=== PATIENT | female | born 1980 | race Two or more races ===

== ENCOUNTER 2025-02-15 19:06 | Inpatient (IN) | payer SELFPAY ==
[~2025-02-15] VITALS: Ht 149.9 cm; Wt 62.5 kg
--- NOTE | 2025-02-15 19:44 | ED.PDOC ---
HPI (NEURO) HPI Comments 44 year old female with a Hx of Seizures and SLE presents to the ED for the c/c of having 4x Seizures w/ associated episodes of Hematemesis, and N/. Pt states that her symptoms started 2x days ago after previously being admitted at another hospital in [place] for the same c/c, pt notes that she has been unable to take her Keppra medication, because she will just "throw it up". Pt denies and Chest pain, ABD pain, or any other associated symptoms, modifiers, recent injuries or sick contacts present at this time. Chief Complaint: Seizure Time Seen by MD: 19:39 Reviewed Notes: Nurses Notes, Medications, Allergies Information Source: Patient Mode of Arrival: Ambulatory Severity: Moderate Dizziness/Weakness Severity: Does not affect activitie Headache Severity: Moderate Timing: Days Duration: Since onset, Days Prehospital treatment: None Seizure Quality: Mulitple Episodes Headache Quality: Throbbing Headache Location: Generalized Weakness Location: Generalized Numbness Location: Generalized Seizure Location: Generalized Onset: At rest Circumstances: Spontaneous Symptoms: None Before: Normal During: Awake After: Normal Mentation History of: None Modifying factors: Nothing Associated Signs and Symptoms: Nausea, Vomiting Past Medical History PAST MEDICAL HISTORY: Seizures Past Medical History (Other): SLE Surgical History: Family History Family History: Reviewed,noncontributory to illness Social History Smoker: Non-Smoker Alcohol: Denies ETOH Use Drugs: Denies Drug Use Lives In: Home All Other Systems: Reviewed and Negative (Comprehensive systems review obtained and negative except for what is stated in the HPI.) Physical Exam General Appearance: No Apparent Distress HEENT: Other (Pupils and face symmetric. Moist mucous membranes.) Neck: Full Range of Motion, Normal Inspection Respiratory: Lungs Clear, No Accessory Muscle Use, No Respiratory Distress, Normal Breath Sounds Cardiovascular: No Edema, No JVD, Regular Rate/Rhythm Breast Exam: Deferred Gastrointestinal: Epigastric, Soft, Tenderness Genitalia: Deferred Pelvic: Deferred Rectal: Deferred Extremities: Normal inspection, Normal range of motion, Non-tender, No pedal edema Neurologic: Alert (Oriented x4), Normal Affect, Normal Mood, Other (Ambulatory) Cerebellar Function: NOT DONE Reflexes: NOT DONE Skin: Dry, Normal Color, Warm Lymphatic: NOT DONE Was a procedure done? Was a procedure done?: No Differential Diagnosis (SZ) Seizure: CVA/TIA, Syncope, Encephalopathy, Epilepsy-Break Through, Epilepsy- Status CVA: Electrolyte Imbalance, Hypoglycemia General Weakness: Other (Gastritis, ulcer disease, anemia, coagulopathy, among others) Headache: N/A X-Ray, Labs, Meds, VS Vital Signs Date Time Temp Pulse Resp B/P (MAP) Pulse Ox O2 Delivery O2 Flow Rate FiO2 02/15/25 22:53 77 17 111/58 02/15/25 22:42 98.4 77 17 111/58 (75) 98 98.4 02/15/25 22:41 77 17 111/58 02/15/25 21:22 75 18 110/72 (85) 99 02/15/25 21:21 75 18 110/72 02/15/25 20:44 79 17 96 Room Air 02/15/25 20:44 98.1 79 17 98/58 (71) 96 98.1 101/58 (72) 02/15/25 19:08 97.8 93 16 117/79 99 97.8 Lab Test 02/15/25 23:11 02/15/25 21:19 02/15/25 19:55 Range/Units Lactic Acid Level 1.3 0.4-2.0 mmol/L Urine Color Colorless Yellow Urine Clarity Ex.turbid Clear Urine pH 6.5 5.0-9.0 Urine Specific [place] 1.030 1.001-1.035 Urine Protein Trace H Negative Urine Ketones Trace Negative Urine Blood Trace H Negative /uL Urine Nitrite Negative Negative Urine Bilirubin Negative Negative Urine Urobilinogen 2 H Negative mg/dL Urine Leukocyte Esterase 3+ Negative /uL Urine RBC 363 0 - 4 /hpf Urine Microscopic WBC 203 H 0-5 /HPF Urine Squamous Epithelial Cells Mod <5 /hpf Urine Bacteria None seen None Seen /hpf Urine Glucose 4+ H Normal mg/dL Urine Test Negative Negative White Blood Count 11.0 H 4.4-10.8 10^3/uL Red Blood Count 4.14 4.0-5.20 10^6/uL Hemoglobin 9.0 L 12.2-16.2 g/dL Hematocrit 29.9 L 36.0-46.0 % Mean Corpuscular Volume 72.2 L 80.0-100.0 fL Mean Corpuscular Hemoglobin 21.7 L 28.0-32.0 pg Mean Corpuscular Hemoglobin Concent 30.1 L 32.0-36.0 g/dL Red Cell Distribution Width 24.3 H 11.8-14.3 % Platelet Count 167 140-450 10^3/uL Mean Platelet Volume 8.9 6.9-10.8 fL Neutrophils (%) (Auto) 77.3 37.0-80.0 % Lymphocytes (%) (Auto) 16.1 10.0-50.0 % Monocytes (%) (Auto) 5.5 0.0-12.0 % Eosinophils (%) (Auto) 0.6 0.0-7.0 % Basophils (%) (Auto) 0.5 0.0-2.0 % Neutrophils # (Auto) 8.5 1.6-8.6 10 ^3/uL Lymphocytes # (Auto) 1.8 0.4-5.4 10 ^3/uL Monocytes # (Auto) 0.6 0-1.3 10 ^3/uL Eosinophils # (Auto) 0.1 0-0.8 10 ^3/uL Basophils # (Auto) 0.1 0-0.2 10 ^3/uL Nucleated Red Blood Cells 0.1 % Platelet Estimate Adequate Hypochromasia (manual) Moderate Anisocytosis (manual) Moderate Microcytosis Moderate Sodium Level 139 136-145 mmol/L Potassium Level 4.0 3.5-5.1 mmol/L Chloride Level 109 H 98-107 mmol/L Carbon Dioxide Level 19 L 20-31 mmol/L Anion Gap 11 5-15 Blood Urea Nitrogen 8 L 9-23 mg/dL Creatinine 0.81 0.550-1.02 mg/dL Glomerular Filtration Rate Calc 92 >90 mL/min BUN/Creatinine Ratio 9.9 L 10.0-20.0 Serum Glucose 222 H 74-106 mg/dL Calcium Level 8.5 L 8.7-10.4 mg/dL Current Medications Medications (Trade) Dose Ordered Sig/Vargas Route Start Time Stop Time Status Last Admin Ondansetron HCl (Zofran) 4 mg ONCE ONCE IV 02/15/25 19:45 02/15/25 19:46 DC 02/15/25 21:20 Morphine Sulfate 4 mg ONCE ONCE IV 02/15/25 19:45 02/15/25 19:46 DC 02/15/25 21:21 Pantoprazole Sodium (Protonix) 40 mg ONCE ONCE IV 02/15/25 19:45 02/15/25 19:46 DC 02/15/25 21:20 Levetiracetam 100 ml @ 400 mls/hr ONCE ONCE IV 02/15/25 19:45 02/15/25 19:59 DC 02/15/25 20:32 Sodium Chloride 2,000 ml @ 1,000 mls/hr Q2H ONCE IV 02/15/25 19:45 02/15/25 21:44 DC 02/15/25 20:38 Morphine Sulfate 4 mg ONCE ONCE IV 02/15/25 23:00 02/15/25 23:01 DC 02/15/25 22:53 Ceftriaxone Sodium 50 ml @ 100 mls/hr ONCE ONCE IV 02/15/25 23:15 02/15/25 23:44 DC 02/15/25 23:22 PATIENT: NINA LARSON ACCT: [id number] UNIT: [id number] : 1980 LOC: ER ROOM / BED: / AGE / SEX: 44 / F ADM STATUS: REG ER SERVICE 40 ORDERING PHYSICIAN: CARA SWANN MD PROCEDURE(s): ABPL - CT AB PEL WO CON-NO ORAL OR IV REASON: abd pain hematemesis ORDER NUMBER(s): [id number], ACCESSION NUMBER(s): [id number] Exam: CT CT AB PEL WO CON-NO ORAL OR IV History: abd pain hematemesis Comparison Study: None TECHNIQUE: Multidetector CT of the abdomen and pelvis was performed from lung bases to pubic symphysis. Imaging was performed without IV contrast. Axial, coronal, and sagittal multiplanar reformats were obtained from the axial data set by the technologist. RADIATION DOSE: CTDI vol 6.36 mGy. DLP 365.57 mGy.cm Findings: Limited evaluation of the solid organs in the absence of IV contrast. Liver: Unremarkable. Spleen: Unremarkable. Pancreas: Unremarkable. Gallbladder: Unremarkable. Adrenals: Unremarkable Kidneys: Left renal cyst. No hydronephrosis. Pelvic Viscera: Fibroid appearance of the uterus. Vasculature: Unremarkable. Retroperitoneum: Unremarkable. Bowel: No bowel obstruction. No CT evidence of appendicitis. Small hiatal hernia. Possible mild wall thickening of the stomach. Musculoskeletal: Unremarkable. Soft tissues: Unremarkable Lungs: Basilar atelectasis/scarring. Impression: 1. Possible gastric wall thickening, nonspecific. 2. Incidental findings as detailed. X-Ray, Labs, Meds, VS Comment 44-year-old female with a history of seizures and SLE presenting complaining of multiple seizures, nausea, hematemesis, and inability to tolerate p.o. Vitals remarkable for BP 98/58 Exam remarkable for epigastric tenderness to palpation Rhythm strip independently interpreted by me: Sinus rhythm, rate 79, no ectopy. CT abdomen and pelvis Impression: 1. Possible gastric wall thickening, nonspecific. 2. Incidental findings as detailed. CBC remarkable for WBC 11, hemoglobin 9, hematocrit 29.9, metabolic panel unremarkable, UA abnormal consistent with UTI Patient treated with the following in the ED: 2 L 0.9 normal saline IV bolus, morphine 4 mg IV x2, Zofran 4 mg IV, Protonix 40 mg IV, Rocephin 1 g IV On re-evaluation, pain has improved. Vitals were stable. No further emesis in the ED. Plan is to admit the patient for pain and emesis control, GI and Neurology evaluation. Time of 1ST Reevaluation: 20:10 Reevaluation 1ST: Unchanged Patient Education/Counseling: Diagnosis, Treatment, Need For Follow Up Family Education/Counseling: No Family Present Departure 1 Departure Time of Disposition: 23:05 Impression: Primary Impression: Recurrent seizures Additional Impressions: GI bleeding Gastritis UTI (urinary tract infection) Anemia Disposition: ADMITTED INPATIENT Admit to: Tele Condition: Guarded Critical Care Note Critical Care Time?: No Stability Stability form required: No Heart Score Heart Score: Heart Score Response (Comments) Value History N/A 0 EKG N/A 0 Age N/A 0 Risk Factors N/A 0 Troponin N/A 0 Total 0 I personally scribed for CARA SWANN MD ([facility] on 02/15/25 at 19:44. Electronically submitted by Devendra Galindo ([email or web address]). I personally scribed for CARA SWANN MD ([facility]) on 02/15/25 at 22:49. Electronically submitted by Devendra Galindo ([email or web address]). I personally scribed for CARA SWANN MD ([email or web address]) on 02/16/25 at 00:35. Electronically submitted by Devendra Galindo ([email or web address]). CARA SWANN MD Feb 15, 2025 19:44
[2025-02-15 20:18] LABS: Nucleated Red Blood Cells % 0.1 %
[2025-02-15 20:19] LABS: Hematocrit 29.9 % (36.0-46.0); Hemoglobin 9.0 g/dL (12.2-16.2); Mean Corpuscular Hemoglobin 21.7 pg (28.0-32.0); Mean Corpuscular Volume 72.2 fL (80.0-100.0)
[2025-02-15 20:29] LABS: Potassium 4.0 mmol/L (3.5-5.1); Sodium 139 mmol/L (136-145)
[2025-02-15 20:30] LABS: Anion Gap 11 (5-15); Carbon Dioxide 19 mmol/L (20-31); Chloride 109 mmol/L (98-107)
[2025-02-15 20:31] LABS: Calcium 8.5 mg/dL (8.7-10.4)
[2025-02-15] MEDS: levETIRAcetam 1000 mg/100ml 100 ML IV ONE (20:32)
[2025-02-15 20:35] LABS: BUN/Creatinine Ratio 9.9 (10.0-20.0)
[2025-02-15] MEDS: SODIUM CHLORIDE 0.9% 2,000 ML IV ONE (20:38)
[2025-02-15 21:16] LABS: Blood Urea Nitrogen 8 mg/dL (9-23); Glucose 222 mg/dL (74-106)
[2025-02-15] MEDS: ONDANSETRON HCL 4 MG/2 ML VIAL IV ONE (21:20)
[2025-02-15] MEDS: PANTOPRAZOLE 40 MG/10 ML VIAL INJ IV ONE (21:20)
[2025-02-15] MEDS: MORPHINE SULFATE 4 MG/ML SYR/VIAL IV ONE ×2 (21:21→22:53)
[2025-02-15 21:23] LABS: Anisocytosis Moderate
[2025-02-15 22:11] LABS: Urine Protein, UAD TRACE (Negative)
--- NOTE | 2025-02-15 22:47 | DVH ---
Exam: CT CT AB PEL WO CON-NO ORAL OR IV History: abd pain hematemesis Comparison Study: None TECHNIQUE: Multidetector CT of the abdomen and pelvis was performed from lung bases to pubic symphysi s. Imaging was performed without IV contrast. Axial, coronal, and sagittal multiplanar reformats were obtained from the axial data set by the technologist. RADIATION DOSE: CTDI vol 6.36 mGy. DLP 365.57 mGy.cm Findings: Limited evaluation of the solid organs in the absence of IV contrast. Liver: Unremarkable. Spleen: Unremarkable. Pancreas: Unremarkable. Gallbladder: Unremarkable. Adrenals: Unremarkable Kidneys: Left renal cyst. No hydronephrosis. Pelvic Viscera: Fibroid appearance of the uterus. Vasculature: Unremarkable. Retroperitoneum: Unremarkable. Bowel: No bowel obstruction. No CT evidence of appendicitis. Small hiatal hernia. Possible mild wall thickening of the stomach. Musculoskeletal: Unremarkable. Soft tissues: Unremarkable Lungs: Basilar atelectasis/scarring. Impression: 1. Possible gastric wall thickening, nonspecific. 2. Incidental findings as detailed.
[2025-02-15] MEDS: cefTRIAXone 1GM/50ML D5W 50 ML IV ONE (23:22)
[2025-02-16] MEDS ORDERED: DOCUSATE SOD 100 MG CAP PO PRN (01:45)
[2025-02-16] MEDS ORDERED: ONDANSETRON HCL 4 MG/2 ML VIAL IV PRN (01:45)
[2025-02-16] MEDS ORDERED: NITROGLYCERIN 0.4 MG SL TAB SL PRN (01:45)
[2025-02-16] MEDS ORDERED: MORPHINE SULFATE INJ 2 MG/ml SYRG IV PRN (01:45)
--- NOTE | 2025-02-16 01:50 | DVHHP2 ---
History of Present Illness Reason for Visit: Seizure disorder History of Present Illness The patient is a 44-year-old female with past medical history of SLE and seizures presented to [facility] ED for evaluation of seizures activity. Patient reported associated episodes of nausea and hematemesis. Patient reports that her symptoms started 2 days ago after previously being admitted at another hospital in [place] for nausea and vomiting, unable to take her Keppra medication, because she will just "throw it up". Patient was seen and evaluated in the ED, laboratory data shows WBC 11.0, hemoglobin 9.0, hematocrit 29.9, platelets 167, sodium 139, potassium 4.0, BUN 8, creatinine 0.81, glucose 222, hemoglobin A1c pending, calcium 8.5, lactic acid 1.3, blood pressure 123/74, heart rate 80, temperature 98.2 F, O2 saturation 99% on room air. Urinalysis positive for urinary tract infection. Abdomen/pelvis CT revealing possible gastric wall thickening, unspecified. Patient was started on IV antibiotic regimen Rocephin, IV Keppra, please see medication orders section in the computer. On my assessment, patient denied chest pain, no headache, no dizziness, no diaphoresis, no shortness of breath, no abdominal pain, no diarrhea, nausea or vomiting at this moment, no fever, no chills. Patient was admitted for further evaluation and medical management. Past Medical History Seizures, SLE Past Surgical History Family History Reviewed, noncontributory to the management of this case. Past Social History The patient lives at home, denies smoking, alcohol or illicit drugs abuse. Review of Systems Constitutional: Yes: Weakness; No: Fever, Chills, Sweats, Malaise, Other Eyes: No: Pain, Vision change, Conjunctivae inflammation, Eyelid inflammation, Other, Redness ENT: No: Ear pain, Ear discharge, Nose pain, Nose discharge, Nose congestion, Mouth pain, Mouth swelling, Throat pain, Throat swelling, Other Respiratory: No: Cough, Dry, Shortness of breath, SOB with excertion, Wheezing, Hemoptysis, Pleuritic Pain, Sputum, Wheezing, Other Cardiovascular: No: Chest Pain, Palpitations, Orthopnea, Paroxysmal Noc. Dysp marta, Edema, Lt Headedness, Other Gastrointestinal: Nausea, Vomiting (Hematemesis); No: Abdominal Pain, Diarrhea, Constipation, Melena, Hematochezia, Other Genitourinary: No Dysuria, No Frequency, No Incontinence, No Hematuria, No Retention, No Other Musculoskeletal: No: other, neck pain, shoulder pain, arm pain, back pain, hand pain, leg pain, foot pain Skin: No: Rash, Lesions, Jaundice, Bruising, Other Neurological: Seizures; No: Weakness, Numbness, Incoordination, Change in speech, Confusion, Other Allergies: Coded Allergies: Acetaminophen (Verified Allergy, Unknown, 02/15/25) Hydrocodone (Verified Allergy, Unknown, 02/15/25) Ketorolac Tromethamine (Verified Allergy, Unknown, 02/15/25) Exam Vital Signs Vital Signs Date Time Temp Pulse Resp B/P (MAP) Pulse Ox O2 Delivery O2 Flow Rate FiO2 02/16/25 01:23 98.2 80 18 123/74 (90) 99 98.2 02/15/25 20:44 Room Air General Appearance: Alert, Oriented X3, Cooperative, No acute distress HEENT: Atraumatic, PERRLA, EOMI, Mucous membr. moist/pink Respiratory: Clear to auscultation, Normal air movement Cardiovascular: Regular rate, Normal S1, Normal S2, No murmurs Abdominal: Normal bowel sounds, Soft, No tenderness, No hepatospenomegaly, No masses Extremities: No clubbing, No cyanosis, No edema, Normal pulses, No tenderness/ swelling Skin: No rashes, No breakdown, No significant lesion Neuro: Normal speech, Normal tone, Sensation intact, Cranial nerves 3-12 NL, Reflexes 2+, Other (Generalized weakness) Psych/Mental Status: Mental status NL, Mood NL Labs/Xrays Labs Test 02/15/25 23:11 02/15/25 21:19 02/15/25 19:55 Range/Units Lactic Acid Level 1.3 0.4-2.0 mmol/L Urine Color Colorless Yellow Urine Clarity Ex.turbid Clear Urine pH 6.5 5.0-9.0 Urine Specific [place] 1.030 1.001-1.035 Urine Protein Trace H Negative Urine Ketones Trace Negative Urine Blood Trace H Negative /uL Urine Nitrite Negative Negative Urine Bilirubin Negative Negative Urine Urobilinogen 2 H Negative mg/dL Urine Leukocyte Esterase 3+ Negative /uL Urine RBC 363 0 - 4 /hpf Urine Microscopic WBC 203 H 0-5 /HPF Urine Squamous Epithelial Cells Mod <5 /hpf Urine Bacteria None seen None Seen /hpf Urine Glucose 4+ H Normal mg/dL Urine Test Negative Negative White Blood Count 11.0 H 4.4-10.8 10^3/uL Red Blood Count 4.14 4.0-5.20 10^6/uL Hemoglobin 9.0 L 12.2-16.2 g/dL Hematocrit 29.9 L 36.0-46.0 % Mean Corpuscular Volume 72.2 L 80.0-100.0 fL Mean Corpuscular Hemoglobin 21.7 L 28.0-32.0 pg Mean Corpuscular Hemoglobin Concent 30.1 L 32.0-36.0 g/dL Red Cell Distribution Width 24.3 H 11.8-14.3 % Platelet Count 167 140-450 10^3/uL Mean Platelet Volume 8.9 6.9-10.8 fL Neutrophils (%) (Auto) 77.3 37.0-80.0 % Lymphocytes (%) (Auto) 16.1 10.0-50.0 % Monocytes (%) (Auto) 5.5 0.0-12.0 % Eosinophils (%) (Auto) 0.6 0.0-7.0 % Basophils (%) (Auto) 0.5 0.0-2.0 % Neutrophils # (Auto) 8.5 1.6-8.6 10 ^3/uL Lymphocytes # (Auto) 1.8 0.4-5.4 10 ^3/uL Monocytes # (Auto) 0.6 0-1.3 10 ^3/uL Eosinophils # (Auto) 0.1 0-0.8 10 ^3/uL Basophils # (Auto) 0.1 0-0.2 10 ^3/uL Nucleated Red Blood Cells 0.1 % Platelet Estimate Adequate Hypochromasia (manual) Moderate Anisocytosis (manual) Moderate Microcytosis Moderate Sodium Level 139 136-145 mmol/L Potassium Level 4.0 3.5-5.1 mmol/L Chloride Level 109 H 98-107 mmol/L Carbon Dioxide Level 19 L 20-31 mmol/L Anion Gap 11 5-15 Blood Urea Nitrogen 8 L 9-23 mg/dL Creatinine 0.81 0.550-1.02 mg/dL Glomerular Filtration Rate Calc 92 >90 mL/min BUN/Creatinine Ratio 9.9 L 10.0-20.0 Serum Glucose 222 H 74-106 mg/dL Calcium Level 8.5 L 8.7-10.4 mg/dL PATIENT: NINA LARSON ACCT: [id number] UNIT: [id number] : 1980 LOC: ER ROOM / BED: / AGE / SEX: 44 / F ADM STATUS: REG ER SERVICE 40 ORDERING PHYSICIAN: CARA SWANN MD PROCEDURE(s): ABPL - CT AB PEL WO CON-NO ORAL OR IV REASON: abd pain hematemesis ORDER NUMBER(s): [id number], ACCESSION NUMBER(s): [id number] Exam: CT CT AB PEL WO CON-NO ORAL OR IV History: abd pain hematemesis Comparison Study: None TECHNIQUE: Multidetector CT of the abdomen and pelvis was performed from lung bases to pubic symphysis. Imaging was performed without IV contrast. Axial, coronal, and sagittal multiplanar reformats were obtained from the axial data set by the technologist. RADIATION DOSE: CTDI vol 6.36 mGy. DLP 365.57 mGy.cm Findings: Limited evaluation of the solid organs in the absence of IV contrast. Liver: Unremarkable. Spleen: Unremarkable. Pancreas: Unremarkable. Gallbladder: Unremarkable. Adrenals: Unremarkable Kidneys: Left renal cyst. No hydronephrosis. Pelvic Viscera: Fibroid appearance of the uterus. Vasculature: Unremarkable. Retroperitoneum: Unremarkable. Bowel: No bowel obstruction. No CT evidence of appendicitis. Small hiatal hernia. Possible mild wall thickening of the stomach. Musculoskeletal: Unremarkable. Soft tissues: Unremarkable Lungs: Basilar atelectasis/scarring. Impression: 1. Possible gastric wall thickening, nonspecific. 2. Incidental findings as detailed. SEPSIS Sepsis Screen Date sepsis recognized/suspect: Feb 15, 2025 Time Sepsis recognized/suspect: 1909 Recent Procedure: No On Antibiotic Therapy: No Respiratory Rate >20: No Heart Rate >90: Yes Temp<36 C (96.8 F) or >38.3 C: No SBP <90 or MAP <65 mmHG: No New Acute Mental Status Change: No Is the patient on CPAP, BIPAP,: No Physician Orders Ct Ab Pel Wo Con-No Oral Or Iv (02/15/25 19:41) Seizure Precautions (02/15/25 ) Saline Lock (02/15/25 20:24) Blood Culture (02/15/25 23:03) Morphine Sulfate Injection (02/16/25 02:00) Hemoglobin A1c (02/16/25 01:42) Urine Bacterial Culture (02/16/25 01:42) Levetiracetam Ivpb Keppra (02/16/25 10:00) Pantoprazole (Protonix) (02/16/25 10:00) * Neurology Consult (02/16/25 01:42) * Gi Dvh Flatbed Driver (02/16/25 01:42) Ceftriaxone Ivpb Rocephin (02/16/25 09:00) Admit (02/16/25 01:42) Allergies (02/16/25 01:42) Code Status (02/16/25 01:42) 0.9% Ns 1000 Ml (02/16/25 01:45) Oxygen Per Hour (02/16/25 01:42) Ondansetron Hcl (Zofran) (02/16/25 01:45) Docusate Sodium Capsule (Colace Capsule) (02/16/25 01:45) Fall Risk Precautions In Place QSHIFT (02/16/25 01:42) Complete Blood Count (02/17/25 04:00) Comprehensive Metabolic Panel (02/17/25 04:00) Cardiac Diet-2gna,Lofat,Lochol (02/16/25 Breakfast) Condition: Serious (02/16/25 01:42) Maintain Bed Rest (02/16/25 01:42) Morphine Sulfate Injection (02/16/25 01:45) Sequential Compression Device (02/16/25 ) Nitroglycerin Sublingual (Ntrostat Subli (02/16/25 01:45) Morphine Sulfate Injection (02/16/25 01:45) Stat Ekg For Chest Pain (02/16/25 01:42) Notify Md Of Changes From Base (02/16/25 01:42) Media Developer For 24 Hours (02/16/25 01:42) Emergency Dysrhythmia Protocol (02/16/25 01:42) Rhythm Strips Once Every Shift (02/16/25 01:42) Oxygen By Nasal Cannula (02/16/25 01:42) Vital Signs Date Time Temp Pulse Resp B/P (MAP) Pulse Ox O2 Delivery O2 Flow Rate FiO2 02/16/25 01:23 98.2 80 18 123/74 (90) 99 98.2 02/16/25 01:21 80 18 123/74 02/15/25 22:53 77 17 111/58 02/15/25 22:42 98.4 77 17 111/58 (75) 98 98.4 02/15/25 22:41 77 17 111/58 02/15/25 21:22 75 18 110/72 (85) 99 02/15/25 21:21 75 18 110/72 02/15/25 20:44 79 17 96 Room Air 02/15/25 20:44 98.1 79 17 98/58 (71) 96 98.1 101/58 (72) 02/15/25 19:08 97.8 93 16 117/79 99 97.8 Laboratory Tests Test 02/15/25 19:55 02/15/25 23:11 White Blood Count 11.0 10^3/uL (4.4-10.8) H Lactic Acid Level 1.3 mmol/L (0.4-2.0) Medications Medications Dose Ordered Sig/Vargas Route Start Time Stop Time Status Last Admin Dose Admin Ceftriaxone Sodium 50 ml @ 100 mls/hr ONCE ONCE IV 02/15/25 23:15 02/15/25 23:44 DC 02/15/25 23:22 100 MLS/HR Levetiracetam 100 ml @ 400 mls/hr ONCE ONCE IV 02/15/25 19:45 02/15/25 19:59 DC 02/15/25 20:32 400 MLS/HR Morphine Sulfate 4 mg ONCE ONCE IV 02/15/25 19:45 02/15/25 19:46 DC 02/15/25 21:21 4 MG Morphine Sulfate 4 mg ONCE ONCE IV 02/15/25 23:00 02/15/25 23:01 DC 02/15/25 22:53 4 MG Ondansetron HCl 4 mg ONCE ONCE IV 02/15/25 19:45 02/15/25 19:46 DC 02/15/25 21:20 4 MG Pantoprazole Sodium 40 mg ONCE ONCE IV 02/15/25 19:45 02/15/25 19:46 DC 02/15/25 21:20 40 MG Sodium Chloride 2,000 ml @ 1,000 mls/hr Q2H ONCE IV 02/15/25 19:45 02/15/25 21:44 DC 02/15/25 20:38 1,000 MLS/HR Assessment/Plan Assessment/Plan Seizure disorder Hyperglycemia Leukocytosis, unspecified Anemia, unspecified UTI urinary tract infection Generalized weakness Plan 1. Admit to telemetry unit 2. Breathing treatment 3. Pain control management 4. IV antibiotic management 5. Management of fluids and electrolytes 6. Consultation for Neurology 7. Diagnostic test abdomen/pelvis CT 8. DVT prophylaxis on SCDs 9. Repeat labs CBC, CMP in a.m. 10. Home medication reviewed and reconciled 11. Continue with current medical management 12. Treatment plan discussed with patient and RN. Patient verbalized u nderstanding. Plan discussed with: Patient, Other (RN) My Orders Orders - CRISTI STEELE DNP Procedure Category Date Status Time Hemoglobin A1c LAB 02/16/25 Transmitted 01:42 Urine Bacterial SUMA 02/16/25 Transmitted Culture 01:42 Levetiracetam Ivpb PHA 02/16/25 Transmitted Keppra 10:00 Pantoprazole PHA 02/16/25 Transmitted (Protonix) 10:00 * Neurology Consult CONS 02/16/25 Transmitted 01:42 * Gi Dvh Flatbed Driver CONS 02/16/25 Transmitted 01:42 Ceftriaxone Ivpb PHA 02/16/25 Transmitted Rocephin 09:00 Admit ADMIT 02/16/25 Transmitted 01:42 Allergies [facility] 02/16/25 Transmitted 01:42 Code Status CODE 02/16/25 Transmitted 01:42 0.9% Ns 1000 Ml PHA 02/16/25 Transmitted 01:45 Oxygen Per Hour RT 02/16/25 Transmitted 01:42 Ondansetron Hcl PHA 02/16/25 Transmitted (Zofran) 01:45 Docusate Sodium PHA 02/16/25 Transmitted Capsule (Colace 01:45 Fall Risk Precautions [facility] 02/16/[address] 01:42 Complete Blood Count LAB 02/17/25 Verified 04:00 Comprehensive LAB 02/17/25 Verified Metabolic Panel 04:00 Cardiac DIET 02/16/25 Transmitted Diet-2gna,Lofat,Lochol Breakfast Condition: Serious [facility] 02/16/25 Transmitted 01:42 Maintain Bed Rest [facility] 02/16/25 Transmitted 01:42 Morphine Sulfate PHA 02/16/25 Transmitted Injection 01:45 Sequential [facility] 02/16/25 Transmitted Compression Device Nitroglycerin [facility] 02/16/25 Transmitted Sublingual (Ntrostat 01:45 Morphine Sulfate [facility] 02/16/25 Transmitted Injection 01:45 Stat Ekg For Chest [facility] 02/16/25 Transmitted Pain 01:42 Notify Of Changes [facility] 02/16/25 Transmitted From Base 01:42 Media Developer For [facility] 02/16/25 Transmitted 24 Hours 01:42 Emergency Dysrhythmia [facility] 02/16/25 Transmitted Protocol 01:42 Rhythm Strips Once [facility] 02/16/25 Transmitted Every Shift 01:42 Oxygen By Nasal 02/16/25 Transmitted Cannula 01:42 Problem List: (1) Seizure disorder (2) Hyperglycemia (3) Leukocytosis, unspecified (4) Anemia, unspecified (5) UTI (urinary tract infection) (6) Generalized weakness Date of Service: Feb 16, 2025 Billing Provider: CRISTI STEELE DNP Common Visit Codes: [id number] INP/OBS CARE (HIGH) CRSITI STEELE DNP Feb 16, 2025 01:50
[2025-02-16] MEDS: MORPHINE SULFATE 4 MG/ML SYR/VIAL IV ONE (02:17)
[2025-02-16] MEDS: MORPHINE SULFATE INJ 2 MG/ml SYRG IV PRN (06:31)
[2025-02-16] MEDS: SODIUM CHLORIDE 0.9% 1,000 ML IV SCH (07:33)
[2025-02-16] MEDS: cefTRIAXone 1GM/50ML D5W 50 ML IV SCH (09:07)
--- NOTE | 2025-02-16 09:31 | DVHINCON2 ---
Date of service: Feb 16, 2025 Referring Physician Martell Reason for Consultation Hematemesis History of Present Illness The patient is a 44-year-old female with a past medical history significant for lupus, seizure disorder, admitted with a seizures, complaints of hematemesis. Patient has no prior history of hematemesis. She denies any aspirin or NSAID use history. She denies any dysphagia or odynophagia. Patient denies any melena. She denies any significant abdominal pain other than pain from after having emesis. Patient states that she initially had hematemesis with her 1st episode. Patient denies prior history of similar symptoms. Patient is upset that she is waiting in the same chair in the emergency room that she has been since coming to the emergency room last night. GI consultation was obtained for evaluation. Patient is noted to be anemic. She does not take any medications other than Keppra. Past Medical History As above Past Surgical History section Family History No gastrointestinal diseases or malignancy Social History No tobacco, alcohol, or recreational drug use, she lives at home with her family Allergies: Coded Allergies: Acetaminophen (Verified Allergy, Unknown, 02/15/25) Hydrocodone (Verified Allergy, Unknown, 02/15/25) Ketorolac Tromethamine (Verified Allergy, Unknown, 02/15/25) Current Medications Current Medications Medications (Trade) Dose Ordered Sig/Vargas Route PRN Reason Start Time Stop Time Status Last Admin Levetiracetam 100 ml @ 400 mls/hr BID IV 02/16/25 10:00 Pantoprazole Sodium (Protonix) 40 mg DAILY IV 02/16/25 10:00 Ceftriaxone Sodium 50 ml @ 100 mls/hr DAILY@09 IV 02/16/25 09:00 02/16/25 09:07 Sodium Chloride 1,000 ml @ 60 mls/hr [id number] IV 02/16/25 01:45 Ondansetron HCl (Zofran) 4 mg Q4HP PRN IV NAUSEA / VOMITING 02/16/25 01:45 Docusate Sodium (Colace Capsule) 100 mg BIDPRN PRN PO FOR CONSTIPATION 02/16/25 01:45 Morphine Sulfate 2 mg Q4HPRN PRN IV SEVERE PAIN (7-10 PAIN SCALE) 02/16/25 01:45 02/16/25 06:31 Nitroglycerin (Ntrostat Sublingual) 0.4 mg Q5MINP PRN SL FOR CHEST PAIN 02/16/25 01:45 Morphine Sulfate 2 mg Q30M PRN IV FOR CHEST PAIN 02/16/25 01:45 Review of Systems General: No weight changes, denies fevers or chills No visual changes or hearing loss Denies chest pain or palpitations Denies cough wheeze or shortness for breath For GI see HPI History of lupus, she is not taking medications History of seizure disorder underwent no prior history of anemia no history of malignancy No history of kidney problems, dysuria or hematuria Hxof prior seizure bruises no history of depression anxiety or psychosis No history of stroke Vital Signs Vital Signs Date Time Temp Pulse Resp B/P (MAP) Pulse Ox O2 Delivery O2 Flow Rate FiO2 02/16/25 07:34 69 16 98 Room Air 02/16/25 07:27 98.4 117/64 (81) 98.4 Physical Exam General: Alert and oriented x4 Head: NC/AT EOMI/GABE OP clear no JVD Heart: Rate and rhythm abdomen: Soft and nondistended nontender normoactive bowel sounds Extremity: No clubbing cyanosis or edema Labs/Diagnostic Data Labs Test 02/15/25 23:11 02/15/25 21:19 02/15/25 19:55 Range/Units Lactic Acid Level 1.3 0.4-2.0 mmol/L Urine Color Colorless Yellow Urine Clarity Ex.turbid Clear Urine pH 6.5 5.0-9.0 Urine Specific [place] 1.030 1.001-1.035 Urine Protein Trace H Negative Urine Ketones Trace Negative Urine Blood Trace H Negative /uL Urine Nitrite Negative Negative Urine Bilirubin Negative Negative Urine Urobilinogen 2 H Negative mg/dL Urine Leukocyte Esterase 3+ Negative /uL Urine RBC 363 0 - 4 /hpf Urine Microscopic WBC 203 H 0-5 /HPF Urine Squamous Epithelial Cells Mod <5 /hpf Urine Bacteria None seen None Seen /hpf Urine Glucose 4+ H Normal mg/dL Urine Test Negative Negative White Blood Count 11.0 H 4.4-10.8 10^3/uL Red Blood Count 4.14 4.0-5.20 10^6/uL Hemoglobin 9.0 L 12.2-16.2 g/dL Hematocrit 29.9 L 36.0-46.0 % Mean Corpuscular Volume 72.2 L 80.0-100.0 fL Mean Corpuscular Hemoglobin 21.7 L 28.0-32.0 pg Mean Corpuscular Hemoglobin Concent 30.1 L 32.0-36.0 g/dL Red Cell Distribution Width 24.3 H 11.8-14.3 % Platelet Count 167 140-450 10^3/uL Mean Platelet Volume 8.9 6.9-10.8 fL Neutrophils (%) (Auto) 77.3 37.0-80.0 % Lymphocytes (%) (Auto) 16.1 10.0-50.0 % Monocytes (%) (Auto) 5.5 0.0-12.0 % Eosinophils (%) (Auto) 0.6 0.0-7.0 % Basophils (%) (Auto) 0.5 0.0-2.0 % Neutrophils # (Auto) 8.5 1.6-8.6 10 ^3/uL Lymphocytes # (Auto) 1.8 0.4-5.4 10 ^3/uL Monocytes # (Auto) 0.6 0-1.3 10 ^3/uL Eosinophils # (Auto) 0.1 0-0.8 10 ^3/uL Basophils # (Auto) 0.1 0-0.2 10 ^3/uL Nucleated Red Blood Cells 0.1 % Platelet Estimate Adequate Hypochromasia (manual) Moderate Anisocytosis (manual) Moderate Microcytosis Moderate Sodium Level 139 136-145 mmol/L Potassium Level 4.0 3.5-5.1 mmol/L Chloride Level 109 H 98-107 mmol/L Carbon Dioxide Level 19 L 20-31 mmol/L Anion Gap 11 5-15 Blood Urea Nitrogen 8 L 9-23 mg/dL Creatinine 0.81 0.550-1.02 mg/dL Glomerular Filtration Rate Calc 92 >90 mL/min BUN/Creatinine Ratio 9.9 L 10.0-20.0 Serum Glucose 222 H 74-106 mg/dL Hemoglobin A1c 7.4 H <5.7 % A1C Calcium Level 8.5 L 8.7-10.4 mg/dL Assessment 1. Seizure disorder 2. Hematemesis 3. Gastric wall thickening 4. Microcytic anemia 5. Seizure disorder Problems(with codes): (1) Anemia (2) Gastritis (3) GI bleeding (4) Recurrent seizures Plan/Recommendation 1. Pain controlled 2. Protonix b.i.d. 3. Follow H&H and transfuse 4. Consider EGD and/or colonoscopy with the patient is stable 5. Continue with the Keppra 6. We will follow Plan discussed with: Patient TATE KO MD Feb 16, 2025 09:31
[2025-02-16] MEDS ORDERED: LORazepam 2MG/ML-1ML VIAL IV PRN (10:15)
[2025-02-16] MEDS: levETIRAcetam 500 mg/100ml 100 ML IV SCH (10:24)
[2025-02-16] MEDS: PANTOPRAZOLE 40 MG/10 ML VIAL INJ IV SCH (10:24)
--- NOTE | 2025-02-16 10:33 | DVHINCON2 ---
Date of service: Feb 16, 2025 Referring Physician Alice Reason for Consultation Seizure History of Present Illness Ms. Tesfaye is a 44 years old right-handed female with a history of SLE, seizure disorder, she came to the hospital on 02/15/2025 with a chief complaint of seizure activity. At this time, she is alert and fully oriented, she provided the following history Before she came to the hospital, she had four seizures in the role, she remember two of them in that she was shaking all over body with mild biting to the cheek, but no incontinence. Since age of [age], she has had seizure disorder in that she has episodic event with loss of consciousness, shaking all over body, and she remembers the major the of the events in that she was shaking all over the body. She only has this event once a while, she is on Keppra 500 mg b.i.d. with good compliance. She denies history of traumatic brain injury, intracranial infection Urinalysis, 02/15/2025: WBC: 203, urine leukocyte esterase: 3+ WBC/HB/PLT/MCV, 02/15/2025: 11/9/167/72.2 BMP, 02/15/2025: Unremarkable Lactic acid, 02/15/2025 2311: 1.3 HGB A1c, 02/15/25: 7.4 Past Medical History SLE, seizure Past Surgical History Family History Her identical twin sister has grand mal seizure and is on medication, otherwise no major medical problem in the family Social History She denies a history of smoke, drug abuse, she is not license to drive. She is not licensed to drive Allergies: Coded Allergies: Acetaminophen (Verified Allergy, Unknown, 02/15/25) Hydrocodone (Verified Allergy, Unknown, 02/15/25) Ketorolac Tromethamine (Verified Allergy, Unknown, 02/15/25) Current Medications Current Medications Medications (Trade) Dose Ordered Sig/Vargas Route PRN Reason Start Time Stop Time Status Last Admin Levetiracetam 100 ml @ 400 mls/hr BID IV 02/16/25 10:00 Pantoprazole Sodium (Protonix) 40 mg DAILY IV 02/16/25 10:00 Ceftriaxone Sodium 50 ml @ 100 mls/hr DAILY@09 IV 02/16/25 09:00 02/16/25 09:07 Sodium Chloride 1,000 ml @ 60 mls/hr [id number] IV 02/16/25 01:45 Ondansetron HCl (Zofran) 4 mg Q4HP PRN IV NAUSEA / VOMITING 02/16/25 01:45 Docusate Sodium (Colace Capsule) 100 mg BIDPRN PRN PO FOR CONSTIPATION 02/16/25 01:45 Morphine Sulfate 2 mg Q4HPRN PRN IV SEVERE PAIN (7-10 PAIN SCALE) 02/16/25 01:45 02/16/25 06:31 Nitroglycerin (Ntrostat Sublingual) 0.4 mg Q5MINP PRN SL FOR CHEST PAIN 02/16/25 01:45 Morphine Sulfate 2 mg Q30M PRN IV FOR CHEST PAIN 02/16/25 01:45 Lorazepam (Ativan Inj) 0.5 mg PRN PRN IV SEIZURES 02/16/25 10:15 Review of Systems As above, the other systems are negative Vital Signs Vital Signs Date Time Temp Pulse Resp B/P (MAP) Pulse Ox O2 Delivery O2 Flow Rate FiO2 02/16/25 09:23 97.5 79 18 115/72 (86) 98 97.5 02/16/25 07:34 Room Air Physical Exam GENERAL EXAM: General: the patient is well developed and nourished. No acute distress. HEENT: Normocephalic, neck is supple, no carotid bruits. No mass. RESPIRATORY: Normal respiratory effort with symmetrical lung expansion. Lungs clear to auscultation. CARDIOVASCULAR: Regular rate and rhythm with no murmurs. S1, S2. ABDOMEN: Soft, nontender, normal bowel sound NEUROLOGICAL: MENTAL STATUS: Awake and alert. Oriented to person, place, time and general circumstances. Able to give personal history. The patient is aware of recent events SPEECH, LANGUAGE, HIGHER CORTICAL FUNCTION: no aphasia or dysathria. CRANIAL NERVES: #2: Intact visual lee to confrontation. The optic discs were sharp. Retinal background was uniformly pink in appearance. There was no hemorrhages or exudates. #3,4,6: Pupils are equal, round and reactive. EOMs full and conjugate. Mild bilateral gaze evoked nystagmus. #5: Facial sensation intact in all three divisions bilaterally. Mandibular strength intact. #7: Facial muscles symmetrical and strength intact. #8: Hearing grossly normal to voice. #9,10: Uvula and soft palate rise in the midline. Swallow and voice are normal. #11: Trapezius and sternomastoid strength intact bilaterally. #12: Tongue midline. No fasciculations or atrophy. SENSATION: Sensation to touch and pinprick is normal. MOTOR: Normal tone in the upper and lower extremity. Normal muscle bulk. No fasciculations. No abnormal movements or posturing. Muscle strength of the major groups in the upper extremities is 5/5. Muscle strength of the major groups in the lower extremities is 5/5. REFLEXES: Deep tendon reflexes normal and symmetrical. No pathological reflexes. CEREBELLAR/COORDINATION: Finger to nose and heel to taveras are normal bilaterall y. GAIT/STATION: deferred. Labs/Diagnostic Data Labs Test 02/15/25 23:11 02/15/25 21:19 02/15/25 19:55 Range/Units Lactic Acid Level 1.3 0.4-2.0 mmol/L Urine Color Colorless Yellow Urine Clarity Ex.turbid Clear Urine pH 6.5 5.0-9.0 Urine Specific [place] 1.030 1.001-1.035 Urine Protein Trace H Negative Urine Ketones Trace Negative Urine Blood Trace H Negative /uL Urine Nitrite Negative Negative Urine Bilirubin Negative Negative Urine Urobilinogen 2 H Negative mg/dL Urine Leukocyte Esterase 3+ Negative /uL Urine RBC 363 0 - 4 /hpf Urine Microscopic WBC 203 H 0-5 /HPF Urine Squamous Epithelial Cells Mod <5 /hpf Urine Bacteria None seen None Seen /hpf Urine Glucose 4+ H Normal mg/dL Urine Test Negative Negative White Blood Count 11.0 H 4.4-10.8 10^3/uL Red Blood Count 4.14 4.0-5.20 10^6/uL Hemoglobin 9.0 L 12.2-16.2 g/dL Hematocrit 29.9 L 36.0-46.0 % Mean Corpuscular Volume 72.2 L 80.0-100.0 fL Mean Corpuscular Hemoglobin 21.7 L 28.0-32.0 pg Mean Corpuscular Hemoglobin Concent 30.1 L 32.0-36.0 g/dL Red Cell Distribution Width 24.3 H 11.8-14.3 % Platelet Count 167 140-450 10^3/uL Mean Platelet Volume 8.9 6.9-10.8 fL Neutrophils (%) (Auto) 77.3 37.0-80.0 % Lymphocytes (%) (Auto) 16.1 10.0-50.0 % Monocytes (%) (Auto) 5.5 0.0-12.0 % Eosinophils (%) (Auto) 0.6 0.0-7.0 % Basophils (%) (Auto) 0.5 0.0-2.0 % Neutrophils # (Auto) 8.5 1.6-8.6 10 ^3/uL Lymphocytes # (Auto) 1.8 0.4-5.4 10 ^3/uL Monocytes # (Auto) 0.6 0-1.3 10 ^3/uL Eosinophils # (Auto) 0.1 0-0.8 10 ^3/uL Basophils # (Auto) 0.1 0-0.2 10 ^3/uL Nucleated Red Blood Cells 0.1 % Platelet Estimate Adequate Hypochromasia (manual) Moderate Anisocytosis (manual) Moderate Microcytosis Moderate Sodium Level 139 136-145 mmol/L Potassium Level 4.0 3.5-5.1 mmol/L Chloride Level 109 H 98-107 mmol/L Carbon Dioxide Level 19 L 20-31 mmol/L Anion Gap 11 5-15 Blood Urea Nitrogen 8 L 9-23 mg/dL Creatinine 0.81 0.550-1.02 mg/dL Glomerular Filtration Rate Calc 92 >90 mL/min BUN/Creatinine Ratio 9.9 L 10.0-20.0 Serum Glucose 222 H 74-106 mg/dL Hemoglobin A1c 7.4 H <5.7 % A1C Calcium Level 8.5 L 8.7-10.4 mg/dL Assessment Generalized tonic-clonic seizure The majority of them may be psychogenic seizure ? Mixed epileptic and nonepileptic seizure Plan/Recommendation Monitoring Supportive treatment Telemetry Ativan for seizure breakthrough Keppra 500 mg b.i.d. She has been advised to follow with her doctor She has been advised to discuss with her doctor Re: Comprehensive epilepsy clinic evaluation This medical document was created using an electronic medical record system with [employer] dictation system. Although this document has been carefully reviewed, there may still be some phonetic and typographical errors. These areas are purely typographical due to imperfections of the software programs, and do not reflect any compromise in the patient's medical care. Plan discussed with: Patient, Other CARMEN BOYD MD Feb 16, 2025 10:33
[2025-02-16 11:26] VITALS: BP 114/70; PULSE 71; RESP 17; TEMP 97.5; O2SAT 100
[2025-02-16 13:00] VITALS: BP 99/63; PULSE 73; RESP 18; TEMP 98.2; O2SAT 100
[2025-02-16 13:10] LABS: Potassium 4.1 mmol/L (3.5-5.1); Sodium 139 mmol/L (136-145)
[2025-02-16 13:11] LABS: Anion Gap 9 (5-15); Carbon Dioxide 21 mmol/L (20-31); Hematocrit 30.9 % (36.0-46.0); Hemoglobin 9.0 g/dL (12.2-16.2); Nucleated Red Blood Cells % 0.1 %
[2025-02-16 13:13] LABS: Mean Corpuscular Hemoglobin 21.6 pg (28.0-32.0); Mean Corpuscular Volume 73.9 fL (80.0-100.0)
[2025-02-16 13:16] LABS: BUN/Creatinine Ratio 8.6 (10.0-20.0)
[2025-02-16 13:27] LABS: Blood Urea Nitrogen 6 mg/dL (9-23); Calcium 8.4 mg/dL (8.7-10.4); Chloride 109 mmol/L (98-107); Glucose 144 mg/dL (74-106)
--- NOTE | 2025-02-16 13:35 | DVHPN2 ---
Subjective states vomited 3 times today with blood/no diarrhea/no fever Changes from previous H/P or p: No Changes Eyes: No Pain, No Vision change, No Conjunctivae inflammation, No Eyelid inflammation, No Other, No Redness ENT: No Ear pain, No Ear discharge, No Nose pain, No Nose discharge, No Nose congestion, No Mouth pain, No Mouth swelling, No Throat pain, No Throat swelling, No Other Cardiovascular: No Chest Pain, No Palpitations, No Orthopnea, No Paroxysmal Noc. Dyspnea, No Edema, No Lt Headedness, No Other Respiratory: No Cough, No Dry, No Shortness of breath, No SOB with excertion, No Wheezing, No Hemoptysis, No Pleuritic Pain, No Sputum, No Other Gastrointestinal: Nausea, Vomiting (Hematemesis); No Abdominal Pain, No Diarrhea, No Constipation, No Melena, No Hematochezia, No Other Genitourinary: No Dysuria, No Frequency, No Incontinence, No Hematuria, No Retention, No Other Musculoskeletal: No other, No neck pain, No shoulder pain, No arm pain, No back pain, No hand pain, No leg pain, No foot pain Skin: No Rash, No Lesions, No Jaundice, No Bruising, No Other Objective Vitals Vital Signs Date Time Temp Pulse Resp B/P (MAP) Pulse Ox O2 Delivery O2 Flow Rate FiO2 02/16/25 11:26 97.5 71 17 114/70 (85) 100 97.5 02/16/25 07:34 Room Air Intake/Output Intake and Output 02/16/25 07:00 Intake Total 2150 ml Balance 2150 ml Intake IV Total 2150 ml General Appearance: Alert, Oriented X3, Cooperative, No acute distress Lungs: Clear to auscultation Cardiovascular: Regular rate, Normal S1, Normal S2 Abdomen: Normal bowel sounds, Soft, No tenderness, No hepatospenomegaly Musculoskeletal: Normal sensory function, Normal motor function Neuro: Normal speech, Strength at 5/5 X4 ext, Normal tone, Sensation intact, C ranial nerves 3-12 NL Psych/Mental Status: Mental status NL, Mood NL Medications Current Medications Medications Dose Ordered Sig/Vargas Route Start Time Stop Time Status Last Admin Dose Admin Levetiracetam 100 ml @ 400 mls/hr BID IV 02/16/25 10:00 02/16/25 10:24 400 MLS/HR Pantoprazole Sodium 40 mg DAILY IV 02/16/25 10:00 02/16/25 10:24 40 MG Sodium Chloride 1,000 ml @ 60 mls/hr [id number] IV 02/16/25 01:45 Docusate Sodium 100 mg BIDPRN PRN PO 02/16/25 01:45 Lorazepam 0.5 mg PRN PRN IV 02/16/25 10:15 Diagnostic Test (Pha) 1 strip ACHS 02/16/25 17:00 UNV Laboratory Results Laboratory Tests 02/16/25 12:45 Chemistry Test 02/15/25 19:55 02/16/25 12:45 Calcium Level 8.5 mg/dL (8.7-10.4) L 8.4 mg/dL (8.7-10.4) L HgA1c, TSH Test 02/15/25 19:55 Hemoglobin A1c 7.4 % A1C (<5.7) H Urinalysis Test 02/15/25 21:19 Urine Color Colorless (Yellow) Urine Clarity Ex.turbid (Clear) Urine pH 6.5 (5.0-9.0) Urine Specific [place] 1.030 (1.001-1.035) Urine Protein Trace (Negative) H Urine Ketones Trace (Negative) Urine Blood Trace /uL (Negative) H Urine Nitrite Negative (Negative) Urine Bilirubin Negative (Negative) Urine Urobilinogen 2 mg/dL (Negative) H Urine Leukocyte Esterase 3+ /uL (Negative) Urine RBC 363 /hpf (0 - 4) Urine Microscopic WBC 203 /HPF (0-5) H Urine Squamous Epithelial Cells Mod /hpf (<5) Urine Bacteria None seen /hpf (None Seen) Urine Glucose 4+ mg/dL (Normal) H Urine Test Negative (Negative) Assessment/Plan Assessment/Plan upper gi bleed- ? from gastritis from prednisone- states takes prednisone sporadically breakthru seizures from above - has been complint with her med sle per pt statement- check/advised see specialist and start on dmrd and avoid steroids steroid induced dm- monitor/recheck/educated in detail/stop sporadic prednisone and start on dmrd anemia- monitor/lmp 01/27/25- Plan discussed with: Patient, Other My Orders Orders - MIKO ROSE MD Procedure Category Date Status Time Glucose Blood PHA 02/16/25 Logged (Accu-Chek Comfort 17:00 Date of Service: Feb 16, 2025 Billing Provider: MIKO ROSE MD Common Visit Codes: [id number] INP/OBS CARE(MOD) MIKO ROSE MD Feb 16, 2025 13:35
[2025-02-16] MEDS ORDERED: ACCU-CHEK COMFORT CURVE STRIP VI SCH (17:00)
== END 2025-02-16 15:32 | disposition left against medical advice (07) | DRG 378 ==
LOC: ER 19:06 → OVERFLOW 02-16 01:42
PROVIDERS: ADMIT Nurse Practitioner Family; ATTEND Nurse Practitioner Family
DX: K29.71 Gastritis, unspecified, with bleeding (principal); N39.0 Urinary tract infection, site not specified; G40.409 Other generalized epilepsy and epileptic syndromes, not intractable, without status epilepticus; R73.9 Hyperglycemia, unspecified; M32.9 Systemic lupus erythematosus, unspecified; D50.9 Iron deficiency anemia, unspecified; Z53.29 Procedure and treatment not carried out because of patient's decision for other reasons; T38.0X5A Adverse effect of glucocorticoids and synthetic analogues, initial encounter; Z88.6 Allergy status to analgesic agent; Z88.5 Allergy status to narcotic agent; Z82.0 Family history of epilepsy and other diseases of the nervous system; Y92.89 Other specified places as the place of occurrence of the external cause
CPT/HCPCS: 36415; 74176; 80048; 81001; 81025; 83036; 83605; 85025; 87040; 87086; 96365; 96367; 96375; G0378; J2405; J2470